=== PATIENT | male | born 1980 | race Caucasian/White ===

== ENCOUNTER 2024-01-01 22:05 | Emergency (ER) | payer SELFPAY ==
[~2024-01-01] VITALS: Ht 185.4 cm; Wt 93.2 kg
[2024-01-01 22:24] VITALS: TEMP 97.9
[2024-01-01] MEDS ORDERED: NORCO 325 MG-51 TAB PO (22:56)
[2024-01-01] MEDS ORDERED: AMOXICILLIN 8751 TAB PO (22:56)
[2024-01-01] MEDS ORDERED: Home HYDROcodone/Acetaminophen 5/325 MG #4 TABS/PACK PO ONE (23:00)
[2024-01-01] MEDS ORDERED: Amoxicillin/Clavulanate K+ 875/125 MG TAB PO ONE (23:00)
[2024-01-01 23:06] VITALS: BP 116/80; PULSE 65
[2024-01-02] MEDS ORDERED: Home HYDROcodone/Acetaminophen 5/325 MG #4 TABS/PACK PO ONE (01:15)
[2024-01-02] MEDS ORDERED: PERCOCET 325 MG1 TA2 PO (11:31)
== END 2024-01-01 23:09 | disposition home or self-care (01) ==
LOC: COL.ER 22:05
DX: K08.89 Other specified disorders of teeth and supporting structures (principal)